=== PATIENT | female | born 2000 | race Caucasian/White ===

== ENCOUNTER 2019-04-11 19:33 | Emergency (ER) | payer MEDICAID, OTHER ==
[2019-04-11] MEDS ORDERED: ACETAMINOPHEN 325 MG TAB ONE ×2 (20:17→20:21)
[2019-04-11] MEDS ORDERED: ONDANSETRON ODT 4 MG TAB ONE (20:17)
== END 2019-04-11 20:29 | disposition home or self-care (01) ==
LOC: EDH 19:33
DX: J11.1 Influenza due to unidentified influenza virus with other respiratory manifestations (principal); J45.909 Unspecified asthma, uncomplicated

== ENCOUNTER 2019-08-14 13:49 | Emergency (ER) | payer SELFPAY ==
[2019-08-14] MEDS ORDERED: LIDOCAINE HCL 1% 20 ML VIAL ONE (14:37)
[2019-08-14] MEDS ORDERED: ACETAMINOPHEN EXTRA STRENGTH 500 MG TABLET ONE (14:45)
[2019-08-14 14:57] LABS: BASOPHILS % (AUTO) 0.3 % (0.0-5.0); EOSINOPHILS % (AUTO) 0.2 % (0.0-8.0); HEMATOCRIT 38.8 % (36-48); LYMPHOCYTES % (AUTO) 12.3 % (21.0-51.0); MEAN CORPUSCULAR HEMOGLOBIN 28.3 pg (27.0-33.0); MEAN CORPUSCULAR HGB CONC 33.5 g/dL (32.0-36.0); MEAN CORPUSCULAR VOLUME 84.3 fL (80-100); MONOCYTES % (AUTO) 5.9 % (3.0-13.0); PLATELET COUNT (AUTO) 293 K/uL (130-400); RED CELL DISTRIBUTION WIDTH 12.8 % (11.0-15.5); WHITE BLOOD COUNT (AUTO) 13.2 K/uL (4.8-10.8)
[2019-08-14 15:18] LABS: CREATININE 0.7 mg/dL (0.5-1.5); POTASSIUM 3.8 mmol/L (3.5-5.1)
[2019-08-14] MEDS ORDERED: CLINDAMYCIN 600 MG/D5% WATER 50 ML IV ONE (15:36)
== END 2019-08-14 17:07 | disposition home or self-care (01) ==
LOC: EDH 13:49
DX: L02.412 Cutaneous abscess of left axilla (principal); J45.909 Unspecified asthma, uncomplicated
CPT/HCPCS: 10060; 36415; 80048; 81025; 85025; 96365; 99284; J3490